=== PATIENT | female | born 1970 | race African-American/Black ===

== ENCOUNTER 2016-12-07 20:31 | Emergency (ER) | payer MEDICARE, OTHER ==
[~2016-12-07 20:31] MED LIST: ADVAIR 1001 DISK W/D PO; ALBUTEROL17 GM INH; BENADRYL PO; CHLOR-TRIMETON PO; CIPRO PO; FEOSOL PO; GLUCOPHAGE XR500 MG PO; IBUPROFEN PO; IBUPROFEN800 MG PO; KEFLEX PO; LAMISIL PO; LISINOPRIL PO; METFORMIN HCL500 M1 PO; METFORMIN PO; ORUDIS75 M1 PO; PEN-VEE K PO; PROVENTIL17 GM IH; PROVERA10 MG PO; VICODIN 5/1 TAB 5/50 PO; VICODIN 5/500 T1 TAB PO; ZITHROMAX PO
== END 2016-12-07 20:40 | disposition home or self-care (01) ==
LOC: CED 20:31
DX: M25.571 Pain in right ankle and joints of right foot (principal); I10 Essential (primary) hypertension; E11.9 Type 2 diabetes mellitus without complications; F17.210 Nicotine dependence, cigarettes, uncomplicated; J45.909 Unspecified asthma, uncomplicated; Z90.49 Acquired absence of other specified parts of digestive tract; Z98.890 Other specified postprocedural states
CPT/HCPCS: 99282